=== PATIENT | male | born 1970 | race Caucasian/White ===

== ENCOUNTER 2017-08-11 08:32 | Emergency (ER) | payer MEDICAID ==
[~2017-08-11] VITALS: Ht 174 cm; Wt 70.3 kg
[~2017-08-11 08:32] MED LIST: CLEOCIN HCL150 MG PO; EC NAPROSYN500 MG PO; FLEXERIL10 MG PO; KEFLEX 500MG.500 MG PO; LORTAB 5/3251 TAB PO; LORTAB 5/500 501 TAB PO; LORTAB 500 MG-71 TAB PO; MEDROL 4MG. DOSE4 MG PO; NAPROSYN500 M1 PO; NOMEDS; NOMEDS XX; NORCO 325 MG-51 TAB PO; PERCOCET 5/3251 EACH PO; ROBAXIN-750750 MG PO; SYMBICORT1 AE1 IH
--- NOTE | 2017-08-11 08:47 | Emergency Room Report ---
History of Present Illness Time Seen by MD Ramsay Presenting Problem in Triage Pt arrived:Walked Presenting Problem:PT REPORTS R ELBOW PAIN. PT REPORTS HE TRIPPED AND FELL YESTERDAY HITTING HIS ARM ON CONCRETE WHEN HE FELL. 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 N Clinical Suspician of Infection? N Mental Status: 1 - Regular (Normal Baseline) Sepsis Risk:Low Sepsis Risk Have you (or family members/close friends) recently traveled outside the [place]? N If Yes, where/when: Have you had exposure to infectious disease within the past month? N TB? Other? Specify: Comment The patient complains of pain in his RIGHT elbow. He says that he fell yesterday but did not strike his elbow. He struck his area of his distal forearm. He says he then awakened this morning with pain on the extensor side of his proximal forearm just distal to the elbow with some swelling and "fever" in the elbow, but no fevers or chills systemically. He already had a healing abrasion in that same area. ALLERGIES Coded Allergies: Penicillins (Intermediate, I-HIVES 02/12/16) hydrocodone (Intermediate, I-ITCHING 02/12/16) Sulfa (Sulfonamide Antibiotics) (Mild, NA-NAUSEA/VOMITING 02/12/16) History Medical History General CAD? No Angina: No [place]: No Hypertension? No Hyperlipidemia? No CHF? No DVT? No PE? No COPD? No Asthma? Yes Anemia? No GERD? No Gastric ulcers? No GI Bleed? No Hernia? No Thyroid Problems? No Hypothyroidism? No CVA? No Seizures? No Diabetes? No Renal Insuffiency? No End Stage Renal Disease? No UTI? No Stones? No BPH? No GB Disease: No Nephritic Syndrome? No Asplenia? No Hepatitis? No Sickle Cell Disease? No Arthritis? Yes Migraines? No Cataracts? No Glaucoma? No MRSA? No HIV? No TB? No Anxiety? No Depression? No Cancer? No More? No Immunization Hx DT/Tetanus 07/21/10 Surgical Hx Previous Surgery?Y LEFT INDEX FINGER RT ARM SURGERY Social History Smoking Hx Smoker: Current Every Day Smoker Tobacco: Yes Type Cigarettes Packs/day < 1 Pack Alcohol Alcohol: No Review of Systems All Other Systems Reviewed and Negative Constitutional denies fever Musculoskeletal see HPI, joint pain Physical Exam Vital Signs Vital Signs Date Time Temp Pulse Resp B/P Pulse O2 O2 Flow FiO2 Ox Delivery Rate 08/11 938 98.2 75 18 169/101 98 08/11 0839 98.7 82 18 152/98 97 General Appearance no apparent distress Respiratory Status No: respiratory distress. Cardiovascular regular rate/rhythm, normal peripheral pulses Extremities erythema, edema, warmth, and tenderness beginning over his RIGHT olecranon and extending distally in the region of the proximal ulna. There is a small almost completely healed abrasion, 1 cm, in this area. No abscess. No drainage. No olecranon effusion. No palpable joint effusion. Full range of motion., pain with extension at the elbow. No pain with pronation and supination. Distal neurovascular status intact. Neurologic alert, no motor/sensory deficits Medical Decision Making LABS/Meds/Orders Pt receiving controlled substance in ED? Yes Guicho was queried for this patient? Yes Comment [id number] 0 rxs. Results/Orders Current Medication Orders Sig/Kam Start time Last Medication Dose Route Stop Time Status Admin Clindamycin HCl 0 .STK-MED ONE 08/11 935 DC PO Clindamycin HCl 300 MG ONCE ONE 08/11 0930 DC 08/11 PO 08/11 0931 0935 Acetaminophen 500 MG ONCE ONE 08/11 0845 DC 08/11 PO 08/11 0846 0845 Acetaminophen 0 .STK-MED ONE 08/11 0845 DC PO Orders Procedure Date/time Status STABILIZE JOINT 08/11 919 Active XRAY/CT/US XRAY/CT/US XRAY elbow Comment Elbow X-ray interpreted by Bobby Stephenson M.D.: Degenerative changes. No fracture seen. No joint effusion seen. Departure Departure Disposition DC Home or Self Care(routine) Clinical Impression Primary Impression: Cellulitis of right elbow Condition STABLE Referrals Eh FUENTES,bAbe Sampson (PCP/Family) Patient Instructions DI for Cellulitis -- Adult Additional Instructions Nicholas wrap and sling as needed. Follow-up recheck by your physician in 2-3 days. Return if worsening swelling, pain, or fever. Prescriptions Current Visit Scripts Clindamycin Hcl (Clindamycin 300MG) 300 MG PO QID #40 CAP ACETAMINOPHEN WITH CODEINE (Tylenol With Codeine #3 Tablet) 1-2 TAB PO Q4HP PRN pain #10 TAB Naproxen (Naprosyn 500MG Tab) 500 MG PO BID #14 TAB ED Critical Care Critical Care No at 1100
--- NOTE | 2017-08-11 08:47 | Emergency Room Report ---
History of Present Illness Time Seen by MD Ramsay Presenting Problem in Triage Pt arrived:Walked Presenting Problem:PT REPORTS R ELBOW PAIN. PT REPORTS HE TRIPPED AND FELL YESTERDAY HITTING HIS ARM ON CONCRETE WHEN HE FELL. 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 N Clinical Suspician of Infection? N Mental Status: 1 - Regular (Normal Baseline) Sepsis Risk:Low Sepsis Risk Have you (or family members/close friends) recently traveled outside the [place]? N If Yes, where/when: Have you had exposure to infectious disease within the past month? N TB? Other? Specify: Comment The patient complains of pain in his RIGHT elbow. He says that he fell yesterday but did not strike his elbow. He struck his area of his distal forearm. He says he then awakened this morning with pain on the extensor side of his proximal forearm just distal to the elbow with some swelling and "fever" in the elbow, but no fevers or chills systemically. He already had a healing abrasion in that same area. ALLERGIES Coded Allergies: Penicillins (Intermediate, I-HIVES 02/12/16) hydrocodone (Intermediate, I-ITCHING 02/12/16) Sulfa (Sulfonamide Antibiotics) (Mild, NA-NAUSEA/VOMITING 02/12/16) History Medical History General CAD? No Angina: No CT: No Hypertension? No Hyperlipidemia? No CHF? No DVT? No PE? No COPD? No Asthma? Yes Anemia? No GERD? No Gastric ulcers? No GI Bleed? No Hernia? No Thyroid Problems? No Hypothyroidism? No CVA? No Seizures? No Diabetes? No Renal Insuffiency? No End Stage Renal Disease? No UTI? No Stones? No BPH? No GB Disease: No Nephritic Syndrome? No Asplenia? No Hepatitis? No Sickle Cell Disease? No Arthritis? Yes Migraines? No Cataracts? No Glaucoma? No MRSA? No HIV? No TB? No Anxiety? No Depression? No Cancer? No More? No Immunization Hx DT/Tetanus 07/21/10 Surgical Hx Previous Surgery?Y LEFT INDEX FINGER RT ARM SURGERY Social History Smoking Hx Smoker: Current Every Day Smoker Tobacco: Yes Type Cigarettes Packs/day < 1 Pack Alcohol Alcohol: No Review of Systems All Other Systems Reviewed and Negative Constitutional denies fever Musculoskeletal see HPI, joint pain Physical Exam Vital Signs Vital Signs Date Time Temp Pulse Resp B/P Pulse O2 O2 Flow FiO2 Ox Delivery Rate 08/11 938 98.2 75 18 169/101 98 08/11 0839 98.7 82 18 152/98 97 General Appearance no apparent distress Respiratory Status No: respiratory distress. Cardiovascular regular rate/rhythm, normal peripheral pulses Extremities erythema, edema, warmth, and tenderness beginning over his RIGHT olecranon and extending distally in the region of the proximal ulna. There is a small almost completely healed abrasion, 1 cm, in this area. No abscess. No drainage. No olecranon effusion. No palpable joint effusion. Full range of motion., pain with extension at the elbow. No pain with pronation and supination. Distal neurovascular status intact. Neurologic alert, no motor/sensory deficits Medical Decision Making LABS/Meds/Orders Pt receiving controlled substance in ED? Yes Guicho was queried for this patient? Yes Comment [id number] 0 rxs. Results/Orders Current Medication Orders Sig/Kam Start time Last Medication Dose Route Stop Time Status Admin Clindamycin HCl 0 .STK-MED ONE 08/11 935 DC PO Clindamycin HCl 300 MG ONCE ONE 08/11 0930 DC 08/11 PO 08/11 0931 0935 Acetaminophen 500 MG ONCE ONE 08/11 0845 DC 08/11 PO 08/11 0846 0845 Acetaminophen 0 .STK-MED ONE 08/11 0845 DC PO Orders Procedure Date/time Status STABILIZE JOINT 08/11 919 Active XRAY/CT/US XRAY/CT/US XRAY elbow Comment Elbow X-ray interpreted by Bobby Stephenson M.D.: Degenerative changes. No fracture seen. No joint effusion seen. Departure Departure Disposition DC Home or Self Care(routine) Clinical Impression Primary Impression: Cellulitis of right elbow Condition STABLE Referrals Eh FUENTES,Abbe Sampson (PCP/Family) Patient Instructions DI for Cellulitis -- Adult Additional Instructions Nicholas wrap and sling as needed. Follow-up recheck by your physician in 2-3 days. Return if worsening swelling, pain, or fever. Prescriptions Current Visit Scripts Clindamycin Hcl (Clindamycin 300MG) 300 MG PO QID #40 CAP ACETAMINOPHEN WITH CODEINE (Tylenol With Codeine #3 Tablet) 1-2 TAB PO Q4HP PRN pain #10 TAB Naproxen (Naprosyn 500MG Tab) 500 MG PO BID #14 TAB ED Critical Care Critical Care No at 1100
[2017-08-11] MEDS ORDERED: TYLENOL WITH CO1 TA1 PO (09:21)
[2017-08-11] MEDS ORDERED: NAPROSYN500 M1 PO (09:21)
[2017-08-11] MEDS ORDERED: CLINDAMYCIN HC300 MG PO (09:21)
--- NOTE | 2017-08-11 09:31 | RADIOLOGY REPORT PS360 ---
ELBOW-RT-3 VIEWS HISTORY: FALL, SWELLING, PAIN ORDERING PHYSICIAN: Bobby Stephenson MD PATIENT AGE: 46 years COMPARISON: 07/21/2010. FINDINGS: No acute fracture or dislocation. There is soft tissue swelling overlying the medial aspect of the elbow. No displaced fat pad. There are mild osteoarthritic changes. IMPRESSION: Mild osteoarthritic change with soft tissue swelling. No acute fracture
[2017-08-11 09:38] VITALS: BP 169/101
== END 2017-08-11 09:38 | disposition home or self-care (01) ==
LOC: ER 08:32
DX: L03.113 Cellulitis of right upper limb (principal); W01.0XXA Fall on same level from slipping, tripping and stumbling without subsequent striking against object, initial encounter; Z88.0 Allergy status to penicillin; Z88.2 Allergy status to sulfonamides; Z88.6 Allergy status to analgesic agent; J45.909 Unspecified asthma, uncomplicated; F17.210 Nicotine dependence, cigarettes, uncomplicated

== ENCOUNTER 2017-09-30 15:58 | Emergency (ER) | payer MEDICAID ==
[~2017-09-30] VITALS: Ht 174 cm; Wt 89.8 kg
[~2017-09-30 15:58] MED LIST changes: +CLINDAMYCIN HC300 MG PO; +TYLENOL WITH CO1 TA1 PO
--- OUTSIDE RECORDS SUMMARY | 2017-09-30 16:14 | External Medical Summary Rpt | CCD ---
Author Author [employer] Organization [employer] Address Unknown Phone Unavailable Purpose Continuity of Care Document - through 2016
--- OUTSIDE RECORDS SUMMARY | 2017-09-30 16:14 | External Medical Summary Rpt ---
Author Author EDUARDA Neri, EDUARDA Neri Organization [employer] Address Unknown Phone Unavailable
--- OUTSIDE RECORDS SUMMARY | 2017-09-30 16:14 | External Medical Summary Rpt | CCD ---
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 Name Role Phone Marvin Gonsalez MD, Unavailable Unavailable Marvin Gonsalez MD Purpose Continuity of Care Document - 04-12-2013 through 2016 Problems Code Diagnosis DOS Provider Status 847.2 847.2 04-12-2013 [facility] [place] L03.113 CELLULITIS OF RIGHT UPPER LIMB R04.0 EPISTAXIS S42.293A OTH DISP FX OF UPPER END OF UNSP HUMERUS, INIT FOR CLOS FX S42.91XA FRACTURE OF RIGHT SHOULDER GIRDLE, PART UNSP, INIT Allergies, Adverse Reactions, Alerts Type Drug Allergy Adverse Reaction to Substance Substance Reaction Severity PCN (penicillin) I-HIVES Mild Hydrocodone I-RASH Mild Medications Na ND Rx Da Fi Fi Am Da Di Ph RX Ph St me C No te ll ll ou ys ag ar # ys at rm s nt no ma ic us Or Da si cy ia de te s n re d De 00 05 0 No xa 51 -2 me 74 8- Lo th 90 20 ng as 12 13 er on 5 e Ac 4M ti G/ ve Ml Sd v OR 00 05 0 No PH 08 -2 EN 90 8- Lo AD 54 20 ng RI 00 13 er NE 6 Ac CI ti TR ve AT E 60 MG /2 ML Vital Signs 04-12-2013 19:23 Name Value Interpretat Reference Comment ion Range Body 98.4 [degF] Temperature BP 84 mm[Hg] Diastolic BP Systolic 116 mm[Hg] Heart 75 /min Rate/Pulse O2% 97 % Respiratory 18 /min Rate 04-12-2013 19:22 Name Value Interpretat Reference Comment ion Range Body 98.4 [degF] Temperature BP 84 mm[Hg] Diastolic BP Systolic 116 mm[Hg] Heart 75 /min Rate/Pulse O2% 97 % Respiratory 18 /min Rate Encounters Encounter Start End Date Code Location Performer Type Date Emergency JAQUELIN Gonsalez MD (ER) 3 19:00 3 19:23 [facility]
--- OUTSIDE RECORDS SUMMARY | 2017-09-30 16:14 | External Medical Summary Rpt | CCD ---
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
--- OUTSIDE RECORDS SUMMARY | 2017-09-30 16:14 | External Medical Summary Rpt | CCD ---
Demographics Preferred Language Malay Marital Status Unknown Buddhist Affiliation Unknown Race Unknown Ethnic Group Unknown Author Author , EDUARDA LERNER Address Unknown Phone Immunization No patient found.
--- OUTSIDE RECORDS SUMMARY | 2017-09-30 16:14 | External Medical Summary Rpt | CCD ---
Demographics Preferred Language Turkish Marital Status Unknown Denominational Affiliation Unknown Race Unknown Ethnic Group Unknown Author Author , EDUARDA LERNER Address Unknown Phone Immunization No patient found.
--- NOTE | 2017-09-30 16:34 | Emergency Room Report ---
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 N Clinical Suspician of Infection? N Mental Status: 1 - Regular (Normal Baseline) Sepsis Risk:Low Sepsis Risk Have you (or family members/close friends) recently traveled outside the [place]? N If Yes, where/when: Have you had exposure to infectious disease within the past month? TB? Other? Specify: Source patient, RN notes reviewed, family, RN/MD Exam Limitations no limitations Comment This is a 46-year-old feel patient presented emergency room with LEFT I pain for the past one week after grinding/sawing a piece of metal with a electric saw and getting a piece of metal into his left eye. Patient did not seek medical care prior to today's ER visit. ALLERGIES Coded Allergies: Penicillins (Intermediate, I-HIVES 09/30/17) hydrocodone (Intermediate, I-ITCHING 09/30/17) Sulfa (Sulfonamide Antibiotics) (Mild, NA-NAUSEA/VOMITING 09/30/17) Home Medications Active Scripts Clindamycin Hcl (Clindamycin 300MG) 300 MG PO QID #40 CAP Prov: 08/11/17 ACETAMINOPHEN WITH CODEINE (Tylenol With Codeine #3 Tablet) 1-2 TAB PO Q4HP PRN pain #10 TAB Prov: 08/11/17 Naproxen (Naprosyn 500MG Tab) 500 MG PO BID #14 TAB Prov: 08/11/17 History Medical History General CAD? No Angina: No [place]: No Hypertension? No Hyperlipidemia? No CHF? No DVT? No PE? No COPD? No Asthma? Yes Anemia? No GERD? No Gastric ulcers? No GI Bleed? No Hernia? No Thyroid Problems? No Hypothyroidism? No CVA? No Seizures? No Diabetes? No Renal Insuffiency? No End Stage Renal Disease? No UTI? No Stones? No BPH? No GB Disease: No Nephritic Syndrome? No Asplenia? No Hepatitis? No Sickle Cell Disease? No Arthritis? Yes Migraines? No Cataracts? No Glaucoma? No MRSA? No HIV? No TB? No Anxiety? No Depression? No Cancer? No More? No Immunization Hx Ped.Immunizations UTD Yes DT/Tetanus 07/21/10 Surgical Hx Previous Surgery?Y LEFT INDEX FINGER RT ARM SURGERY Social History Smoking Hx Smoker: Never Smoker Tobacco: No Packs/day < 1 Pack Alcohol Alcohol: No Review of Systems All Other Systems Reviewed and Negative Eyes pain (left eye pain) Physical Exam Vital Signs Vital Signs Date Time Temp Pulse Resp B/P Pulse O2 O2 Flow FiO2 Ox Delivery Rate 09/30 170 98.6 75 18 139/90 96 09/30 1605 98.3 82 18 152/74 99 09/30 1604 98.6 84 20 134/93 95 General Appearance normal appearance, WD/WN, mild distress Eye Exam - bilateral eye normal exam, bilateral eye PERRL, bilateral eye EOMI, bilateral eye other (normal fundi) Respiratory Status Yes: trachea midline, chest symmetrical, non tender chest. No: respiratory distress. Lung Sounds bilateral: normal breath sounds, lungs clear. Cardiovascular normal exam, regular rate/rhythm, no peripheral edema, no gallop, no JVD, no murmur, no rub, normal peripheral pulses Gastrointestinal normal bowel sounds, normal exam, non tender, soft, no organomegaly Extremities non-tender, normal range of motion, normal inspection Neurologic alert, meat cooler II-XII nml as tested, normal exam, oriented x 3 Mental status normal mood/affect Skin intact, normal color, warm/dry Comments There is a left eye corneal foreign body at 3:00, c/w a piece of metal Medical Decision Making LABS/Meds/Orders Pt receiving controlled substance in ED? No Comment 1640-multiple attempts (w/ cotton tip, tip of a 14G needdle) made to remove the LEFT corneal foreign body, all failed. 16:42 - Case discussed Dr. Shin Abdalla, advise of presentation and findings, consistent with a retained LEFT corneal foreign body area Dr. Abdalla recommended patient to be discharged home and follow up with his office at 8 AM tomorrow morning. Results/Orders Current Medication Orders Sig/Kam Start time Last Medication Dose Route Stop Time Status Admin Diphtheria/Pertussis/ 0.5 ML ONCE ONE 09/30 1700 DC Tetanus Vacc IM 09/30 1701 Eye Irrigation 15 ML ONCE ONE 09/30 1700 DC 09/30 Solution OP 09/30 1654 Fluorescein Sodium 1 EACH ONCE ONE 09/30 1700 DC 09/30 OP 09/30 1701 1654 Gentamicin Sulfate 0.1 DROP ONCE ONE 09/30 1700 DC 09/30 OP 09/30 1701 1653 Tetracaine HCl 2 ML ONCE ONE 09/30 1700 DC 09/30 OP 09/30 1701 1656 Diphtheria/Pertussis/ 0 .STK-MED ONE 09/30 165 DC Tetanus Vacc IM Miscellaneous 0 .STK-MED ONE 09/30 1604 DC XX Orders Procedure Date/time Status GEN NSG/PT REQ (NOT FOR MEDS!) 09/30 164 Active Procedures Eye Procedure Eye Procedure Risks/benefits discussed with pt/guardian? Yes Tetracaine Drops Administered left eye Fluorescein Stick(s) Used left eye Slit lamp exam No (not available in this ER) Eye FB Removal superficial, embedded, Risk of retained FB expla. Departure Departure Time of Disposition 1643 Disposition DC Home or Self Care(routine) Clinical Impression Primary Impression: Corneal foreign body Qualifiers: Encounter type: initial encounter Laterality: left Qualified Code: T15.02XA - Foreign body in cornea, left eye, initial encounter Condition STABLE Referrals [facility] Tomorrow morning at 8 AM, as arranged with Dr. Shin Abdalla Patient Instructions DI for Corneal Foreign Body-Eye Additional Instructions Please use the medications prescribed as directed, do not rub your LEFT thigh, follow-up with Dr. Shin Abdalla at [facility] at 8 AM tomorrow, as discussed with the fringe maker this afternoon. Discharge Counseling Counseled pt/family regarding diagnosis, test results, medications/RX, home care, follow up needs Comment Please use the medications prescribed as directed, do not rub your LEFT thigh, follow-up with Dr. Shin Abdalla at [facility] at 8 AM tomorrow, as discussed with the fringe maker this afternoon. Prescriptions Current Visit Scripts GENTAMICIN SULFATE (GENTAMICIN 0.3% OPHTH SOLN) 1 DROP OP QID #1 BOT Ref 1 TO AFFECTED EYE(S) ED Critical Care Critical Care No at 3142
--- NOTE | 2017-09-30 16:34 | Emergency Room Report ---
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 N Clinical Suspician of Infection? N Mental Status: 1 - Regular (Normal Baseline) Sepsis Risk:Low Sepsis Risk Have you (or family members/close friends) recently traveled outside the [place]? N If Yes, where/when: Have you had exposure to infectious disease within the past month? TB? Other? Specify: Source patient, RN notes reviewed, family, RN/MD Exam Limitations no limitations Comment This is a 46-year-old feel patient presented emergency room with LEFT I pain for the past one week after grinding/sawing a piece of metal with a electric saw and getting a piece of metal into his left eye. Patient did not seek medical care prior to today's ER visit. ALLERGIES Coded Allergies: Penicillins (Intermediate, I-HIVES 09/30/17) hydrocodone (Intermediate, I-ITCHING 09/30/17) Sulfa (Sulfonamide Antibiotics) (Mild, NA-NAUSEA/VOMITING 09/30/17) Home Medications Active Scripts Clindamycin Hcl (Clindamycin 300MG) 300 MG PO QID #40 CAP Prov: 08/11/17 ACETAMINOPHEN WITH CODEINE (Tylenol With Codeine #3 Tablet) 1-2 TAB PO Q4HP PRN pain #10 TAB Prov: 08/11/17 Naproxen (Naprosyn 500MG Tab) 500 MG PO BID #14 TAB Prov: 08/11/17 History Medical History General CAD? No Angina: No MO: No Hypertension? No Hyperlipidemia? No CHF? No DVT? No PE? No COPD? No Asthma? Yes Anemia? No GERD? No Gastric ulcers? No GI Bleed? No Hernia? No Thyroid Problems? No Hypothyroidism? No CVA? No Seizures? No Diabetes? No Renal Insuffiency? No End Stage Renal Disease? No UTI? No Stones? No BPH? No GB Disease: No Nephritic Syndrome? No Asplenia? No Hepatitis? No Sickle Cell Disease? No Arthritis? Yes Migraines? No Cataracts? No Glaucoma? No MRSA? No HIV? No TB? No Anxiety? No Depression? No Cancer? No More? No Immunization Hx Ped.Immunizations UTD Yes DT/Tetanus 07/21/10 Surgical Hx Previous Surgery?Y LEFT INDEX FINGER RT ARM SURGERY Social History Smoking Hx Smoker: Never Smoker Tobacco: No Packs/day < 1 Pack Alcohol Alcohol: No Review of Systems All Other Systems Reviewed and Negative Eyes pain (left eye pain) Physical Exam Vital Signs Vital Signs Date Time Temp Pulse Resp B/P Pulse O2 O2 Flow FiO2 Ox Delivery Rate 09/30 170 98.6 75 18 139/90 96 09/30 1605 98.3 82 18 152/74 99 09/30 1604 98.6 84 20 134/93 95 General Appearance normal appearance, WD/WN, mild distress Eye Exam - bilateral eye normal exam, bilateral eye PERRL, bilateral eye EOMI, bilateral eye other (normal fundi) Respiratory Status Yes: trachea midline, chest symmetrical, non tender chest. No: respiratory distress. Lung Sounds bilateral: normal breath sounds, lungs clear. 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 No Comment 1640-multiple attempts (w/ cotton tip, tip of a 14G needdle) made to remove the LEFT corneal foreign body, all failed. 16:42 - Case discussed Dr. Shin Abdalla, advise of presentation and findings, consistent with a retained LEFT corneal foreign body area Dr. Abdalla recommended patient to be discharged home and follow up with his office at 8 AM tomorrow morning. Results/Orders Current Medication Orders Sig/Kam Start time Last Medication Dose Route Stop Time Status Admin Diphtheria/Pertussis/ 0.5 ML ONCE ONE 09/30 1700 DC Tetanus Vacc IM 09/30 1701 Eye Irrigation 15 ML ONCE ONE 09/30 1700 DC 09/30 Solution OP 09/30 1654 Fluorescein Sodium 1 EACH ONCE ONE 09/30 1700 DC 09/30 OP 09/30 1701 1654 Gentamicin Sulfate 0.1 DROP ONCE ONE 09/30 1700 DC 09/30 OP 09/30 1701 1653 Tetracaine HCl 2 ML ONCE ONE 09/30 1700 DC 09/30 OP 09/30 1701 1656 Diphtheria/Pertussis/ 0 .STK-MED ONE 09/30 165 DC Tetanus Vacc IM Miscellaneous 0 .STK-MED ONE 09/30 1604 DC XX Orders Procedure Date/time Status GEN NSG/PT REQ (NOT FOR MEDS!) 09/30 164 Active Procedures Eye Procedure Eye Procedure Risks/benefits discussed with pt/guardian? Yes Tetracaine Drops Administered left eye Fluorescein Stick(s) Used left eye Slit lamp exam No (not available in this ER) Eye FB Removal superficial, embedded, Risk of retained FB expla. Departure Departure Time of Disposition 1643 Disposition DC Home or Self Care(routine) Clinical Impression Primary Impression: Corneal foreign body Qualifiers: Encounter type: initial encounter Laterality: left Qualified Code: T15.02XA - Foreign body in cornea, left eye, initial encounter Condition STABLE Referrals [facility] Tomorrow morning at 8 AM, as arranged with Dr. Shin Abdalla Patient Instructions DI for Corneal Foreign Body-Eye Additional Instructions Please use the medications prescribed as directed, do not rub your LEFT thigh, follow-up with Dr. Shin Abdalla at [facility] at 8 AM tomorrow, as discussed with the system sales consultant this afternoon. Discharge Counseling Counseled pt/family regarding diagnosis, test results, medications/RX, home care, follow up needs Comment Please use the medications prescribed as directed, do not rub your LEFT thigh, follow-up with Dr. Sihn Abdalla at [facility] at 8 AM tomorrow, as discussed with the system sales consultant this afternoon. Prescriptions Current Visit Scripts GENTAMICIN SULFATE (GENTAMICIN 0.3% OPHTH SOLN) 1 DROP OP QID #1 BOT Ref 1 TO AFFECTED EYE(S) ED Critical Care Critical Care No at [id number]
[2017-09-30] MEDS ORDERED: GENTAMICIN O5 ML/BOT OP (16:47)
[2017-09-30 17:00] VITALS: BP 139/90
== END 2017-09-30 17:01 | disposition home or self-care (01) ==
LOC: ER 15:58
DX: T15.02XA Foreign body in cornea, left eye, initial encounter (principal); J45.909 Unspecified asthma, uncomplicated; Z88.0 Allergy status to penicillin; Z88.2 Allergy status to sulfonamides; Z23 Encounter for immunization